=== PATIENT | male | born 1975 | race Caucasian/White ===

== ENCOUNTER 2019-04-11 14:37 | Emergency (ER) | payer OTHER ==
[~2019-04-11] VITALS: Ht 188 cm; Wt 130.5 kg
[2019-04-11 14:43] VITALS: BP 173/92
--- NOTE | 2019-04-11 14:56 | NUR ---
PATIENT BROUGHT IN REQUESTING HIV VACC AFTER RECENT EXPOSURE. PATIENT IS ALERT, ORIENTED.
[2019-04-11] MEDS ORDERED: TENOFOVIR 300MG TABLET PO ONE (15:30)
[2019-04-11] MEDS ORDERED: EMTRICITABINE/TENOFOVIR 200 MG/300 MG TABLET PO ONE (15:30)
[2019-04-11] MEDS ORDERED: EMTRICITABINE 200 MG CAPSULE PO ONE (15:30)
[2019-04-11] MEDS ORDERED: DOLUTEGRAVIR 50MG TAB PO ONE (15:30)
--- NOTE | 2019-04-11 15:52 | NUR ---
DISCHARGE INSTRUCTIONS REVIEWED, MEDICATIONS GIVEN BY MARELY GARCIA. NO QUESTIONS AT THIS TIME
== END 2019-04-11 15:54 | disposition home or self-care (01) ==
LOC: ED 15:47
DX: Z21 Asymptomatic human immunodeficiency virus [HIV] infection status (principal)
CPT/HCPCS: 99283

== ENCOUNTER 2020-07-27 16:34 | Emergency (ER) | payer OTHER ==
[~2020-07-27] VITALS: Ht 188 cm; Wt 124.9 kg
[2020-07-27] MEDS ORDERED: ASPIRIN 81 MG TABLET CHEW PO ONE (17:00)
[2020-07-27] MEDS ORDERED: ASPIRIN 81 MG TABLET CHEW ONE (17:09)
--- NOTE | 2020-07-27 17:17 | NUR ---
THIS IS A 44 YO M W/ C/O SHARP INTERMITTENT CP 1/10 THAT RADIATES DOWN RT ARM. PT DENIES ANY MEDICAL HX, NO HOME MEDS. PT RESTING CONNECTED TO ALL MONITORING, SIDE RAILS UPX2 AND CALL LIGHT IN REACH. FAMILY AT BEDSIDE, DIONY COLE. Addendum: 07/27/20 at 1719 by [email or web address] THIS IS A 44 YO M W/ C/O SHARP INTERMITTENT CP 1/10 THAT RADIATES DOWN LT ARM X6 DAYS. DENIES SOB, DIZZINESS. PT DENIES ANY MEDICAL HX, NO HOME MEDS. PT RESTING CONNECTED TO ALL MONITORING, SIDE RAILS UPX2 AND CALL LIGHT IN REACH. FAMILY AT BEDSIDE, DIONY COLE.
[2020-07-27 17:19] LABS: BASOPHILS % (AUTO) 1 % (0-1); EOSINOPHILS % (AUTO) 1 % (1-7); LYMPHOCYTES % (AUTO) 21 % (22-44); MEAN CORPUSCULAR HEMOGLOBIN 31.2 pg (27.5-34.5); MEAN CORPUSCULAR HGB CONC 34.6 g/dL (33.2-36.2); MEAN PLATELET VOLUME 9.5 fL (7.4-10.4); MONOCYTES % (AUTO) 9 % (2-9); NEUTROPHILS % (AUTO) 68 % (42-75); PLATELET COUNT 218 x10^3/uL (130-400); RED BLOOD COUNT 5.15 x10^6/uL (4.38-5.82); RED CELL DISTRIBUTION WIDTH 13.1 % (9.4-14.8)
[2020-07-27 17:26] LABS: MD NO
[2020-07-27 17:29] LABS: ANION GAP 6 mmol/L (5-15); CALCIUM 8.9 mg/dL (8.5-10.1); CHLORIDE 110 mmol/L (98-107); CREATININE 1.01 mg/dL (0.7-1.3)
[2020-07-27 17:33] LABS: TROPONIN I < 0.015 ng/mL (0.000-0.045)
[2020-07-27] MEDS ORDERED: CYCLOBENZAPRINE 10 MG TABLET ONE (17:44)
[2020-07-27 17:45] VITALS: BP 126/79
--- NOTE | 2020-07-27 17:48 | NUR ---
PT MEDICATED PER EMAR. DIONY COLE. AWAITING MD RECHECK.
[2020-07-27] MEDS ORDERED: CYCLOBENZAPRINE 10 MG TABLET PO ONE (18:00)
== END 2020-07-27 19:06 | disposition home or self-care (01) ==
LOC: ED 18:00
DX: S46.912A Strain of unspecified muscle, fascia and tendon at shoulder and upper arm level, left arm, initial encounter (principal); R07.89 Other chest pain; F17.200 Nicotine dependence, unspecified, uncomplicated; X58.XXXA Exposure to other specified factors, initial encounter; Y93.89 Activity, other specified; Y92.89 Other specified places as the place of occurrence of the external cause; Y99.8 Other external cause status
CPT/HCPCS: 36415; 71045; 80048; 82040; 84484; 85025; 93005; 99285